=== PATIENT | female | born 1955 | race Caucasian/White ===

== ENCOUNTER 2018-03-14 19:58 | Emergency (ER) | payer OTHER ==
[~2018-03-14] VITALS: Ht 157.5 cm; Wt 51.2 kg
[2018-03-14] MEDS ORDERED: FLEXERIL10 MG PO (22:08)
[2018-03-14] MEDS ORDERED: NAPROSYN500 MG PO (22:08)
[2018-03-14] MEDS ORDERED: LORTAB 5-325 M1 EACH PO (22:08)
[2018-03-14 22:29] VITALS: BP 154/78
== END 2018-03-14 22:29 | disposition home or self-care (01) ==
LOC: EME 19:58 → RME 19:58
DX: S00.83XA Contusion of other part of head, initial encounter (principal); S40.022A Contusion of left upper arm, initial encounter; S09.8XXA Other specified injuries of head, initial encounter; V47.6XXA Car passenger injured in collision with fixed or stationary object in traffic accident, initial encounter; Y92.410 Unspecified street and highway as the place of occurrence of the external cause
CPT/HCPCS: 99281; 99284